=== PATIENT | male | born 1945 ===

== ENCOUNTER 2023-08-01 12:03 | Inpatient (IN) | payer MEDICARE, OTHER, SELFPAY ==
[2023-08-01] VITALS (26 sets, daily range): BP systolic 128–144; BP diastolic 47–71; PULSE 63–91; RESP 12–26; TEMP 36.4–36.9; O2SAT 92–100; BMI 20.5
--- NOTE | ~2023-08-01 | XR_ITS ---
XR chest 2V 08/01/2023 13:40 Indication: Shortness of breath and cough Procedure: 2 view chest Comparison: No prior studies for comparison. Findings: Diffuse bilateral airspace disease, compatible with edema versus pneumonia. Emphysema. No s ignificant effusion. No pneumothorax. Heart size normal. No acute osseous abnormality. Impression: 1: Diffuse bilateral airspace disease may represent edema or pneumonia. Reviewed, dictated and finalized at location A. TTING MACHINE OPERATOR Impression: 1: Diffuse bilateral airspace disease may represent edema or pneumonia.
--- NOTE | 2023-08-01 13:33 | ECG_ITS ---
Measurements Intervals [place] Rate: 63 P: 76 [place]: 130 QRS: 29 QRSD: 92 T: 60 QT: 384 QTc: 394 Interpretive Statements SINUS RHYTHM LOW QRS VOLTAGE IN LIMB LEADS BASELINE WANDER- V4-V6 BORDERLINE ECG NO PREVIOUS ECG AVAILABLE FOR COMPARISON Electronically Signed On 08-01-2023 19:18:40 MARINE CONSULTANT by Mitchell To D.O.
[2023-08-01 14:07] LABS: Hematocrit 42.9 % (42.0-52.0); Hemoglobin 13.9 g/dL (14.0-18.0); Mean Corpuscular HGB Conc 32.4 g/dl (32-36); Mean Corpuscular Hemoglobin 30.3 pg (26-34); Mean Corpuscular Volume 93.5 fl (80-100); Mean Platelet Volume 9.2 fl (7.4-10.4); Platelet Count Result 254 k/mm3 (150-375); Red Blood Count 4.59 M/mm3 (4.6-6.20); Red Cell Distribution Width 12.7 % (11.5-14.5); White Blood Count 4.4 K/mm3 (4.5-10.0)
[2023-08-01 14:18] LABS: Alanine Aminotransferase 45 U/L (6-50); Albumin Level 3.4 g/dL (3.5-5.1); Alkaline Phosphatase 77 U/L (38-126); Anion Gap 6 mmol/L (8-16); Aspartate Amino Transferase 33 U/L (17-59); Bilirubin,Total 0.5 mg/dL (0.2-1.3); Blood Urea Nitrogen 24 mg/dL (9-20); Calcium 9.6 mg/dL (8.4-10.2); Carbon Dioxide 25 mmol/L (22-30); Chloride 105 mmol/L (98-107); Estimated CRCL calculation 52 ml/min; Estimated Glomerular Filt Rate > 60; Glucose 115 mg/dL (65-110); Potassium 3.9 mmol/L (3.4-5.0); Sodium 136 mmol/L (137-145)
[2023-08-01 14:23] LABS: Band Neutrophils Percent 2 % (0-6); Eosinophils Absolute Manual 0.04 K/mm3 (0.02-0.5); Eosinophils Percent Manual 1 % (0-4); Lymphocytes Absolute Manual 1.27 K/mm3 (1.1-4.5); Metamyelocytes Percent 1 %; Monocytes Absolute Manual 0.22 K/mm3 (0.1-0.90); Monocytes Percent Manual 5 % (3-9); Myelocytes Percent 4 %; Neutrophils Absolute Manual 2.64 K/mm3 (1.3-6.7); Neutrophils Percent Manual 58 % (46-73); Platelet Estimate Adequate (Adequate); Total Cells Counted 100
[2023-08-01 14:24] LABS: Atypical Lymphocytes Present; Hypochromasia 2+ (NORMAL); Schistocytes Rare (NORMAL)
--- NOTE | 2023-08-01 14:28 | ED.SOB ---
HPI - SOB/Dyspnea General Chief Complaint: Shortness of Breath/Dyspnea Stated Complaint: sob/ uri Time Seen by Provider: 08/01/23 13:25 History of Present Illness HPI Narrative: Patient is a 78-year-old male with history of COPD presenting with shortness of breath. Patient's family is at bedside and helps with the history. States that they both came down with a viral URI about a month ago. Since that time he has had shortness of breath, cough, malaise. States that he called the [place] last weekend to treated him with a course of antibiotics and steroids which helped a little bit but unfortunately he continues to be very short of breath. Complains of some intermittent chest pain especially with coughing. No fevers, abdominal pain, nausea vomiting, leg swelling. Related Data Home Medications Medication Instructions Recorded Confirmed cetirizine 5 mg tablet 5 mg PO DAILY 08/01/23 08/01/23 cholecalciferol (vitamin D3) 50 50 mcg PO DAILY 08/01/23 08/01/23 mcg (2,000 unit) tablet nifedipine 90 mg tablet,extended 90 mg PO DAILY 08/01/23 08/01/23 release 24 hr tamsulosin 0.4 mg capsule 0.4 mg PO DAILY 08/01/23 08/01/23 thiamine HCl (vitamin B1) 100 mg 100 mg PO DAILY 08/01/23 08/01/23 tablet tiotropium 2.5 mcg-olodaterol 2.5 2 puff inhalation DAILY 08/01/23 08/01/23 mcg/actuation mist for inhalation Allergies Allergy/AdvReac Type Severity Reaction Status Date / Time diazepam [From Valium] Allergy Unknown Verified 08/01/23 14:40 oxycodone Allergy Unknown Verified 08/01/23 14:40 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 HTN (hypertension) Ischemic heart disease Melanoma Tinnitus Surgical History Surgical History History of cholecystectomy Family History Family History Father Alcohol abuse Sibling Renal failure Father Heart failure Mother Uterine cancer Sibling Dementia Social History Social History Smoking packs per day: 1.5 Smoking cigarettes per day: 30.0 Years smoked: 53 Smoking pack-years: 79.50 Smoking status: Former smoker Tobacco type: cigarettes Alcohol intake: never Substance use: never Do You Feel Safe in your Home?: Yes Lack of Transportation: No Lack of Food: Never True Current Housing: I Have Housing Concerned About Future Housing: No Difficulty Paying Gas/Electric Bills: No Difficulty Paying for Meds: No Currently Unemployed: No Education: High School Diploma/GED Difficulty w/ Childcare or Family Care: No Sexual Orientation (if Verbalized by the Patient): Straight or Heterosexual Spiritual care concerns: No Exam Narrative: GENERAL: ill-appearing, in no acute distress HEAD: Normocephalic, atraumatic. EYES: PERRLA and EOMI. ENT: Mucous membranes moist. NECK: Supple. CHEST: very diminished bilaterally, coughing intermit HEART: Regular rate and rhythm ABDOMEN: Soft, nontender, nondistended EXTREMITIES: Normal range of motion. No edema. SKIN: Warm, dry, no rash. NEURO: No focal deficits. Alert and oriented x3. PSYCH: Normal mood and affect. Course Vital Signs Vital signs: Vital Signs Temperature 98.5 F 08/01/23 12:05 Pulse Rate 77 08/01/23 12:05 Respiratory Rate 26 H 08/01/23 12:05 Blood Pressure 144/47 H 08/01/23 12:05 Pulse Oximetry 97 08/01/23 12:05 Temperature 97.6 F 08/04/23 06:28 Pulse Rate 74 08/04/23 08:23 Respiratory Rate 18 08/04/23 07:56 Blood Pressure 136/56 L 08/04/23 08:23 Pulse Oximetry 91 08/04/23 07:44
[2023-08-01] MEDS: IPRATROPIUM BR 0.02% INH SOLN 0.5 MG/2.5 ML VIAL INHALATION ×2 (14:33→20:12)
[2023-08-01] MEDS: ALBUTEROL SULFATE NEB 2.5 MG/3 ML INH 10 MG INHALATION (14:33)
[2023-08-01] MEDS: Please add drug allergy info to patient profile. 1 EACH XX (14:49)
[2023-08-01 14:50] LABS: Lipase 79 U/L (23-300)
[2023-08-01] MEDS: methylPREDNISolone SOD SUCC 125 MG VIAL IV PUSH (14:57)
[2023-08-01] MEDS: SODIUM CHLORIDE 0.9% IV 1,000 ML 999 ML IV CONT (14:57)
[2023-08-01 14:58] LABS: Partial Thromboplastin Time 26.7 SECONDS (22.3-36.8)
[2023-08-01] MEDS: cefTRIAXone 2 GM/NS 100 ML 2 GM/100 ML BAG IVPB (14:58)
[2023-08-01 15:03] LABS: NT Pro B Type Natriuretic Pept 1080 pg/mL (19.9-100); Troponin I 0.013 ng/mL (0.000-0.034)
--- NOTE | 2023-08-01 15:26 | PM.IMHP ---
H&P: HPI History of Present Illness Date/Time: 08/01/23 15:26 Chief Complaint: Dyspnea, Hx COPD Narrative: This is a 78-year-old male patient with a history of hypertension ischemic heart disease COPD melanoma with excision as well as vascular surgery his aorta and iliac arteries who was admitted to the hospital for COPD exacerbation. Patient reports that about a month ago his entire family came down with a viral illness but since that time he has not been able to stop coughing and has been getting significantly more short of breath over the last couple of days. On arrival patient was notably in distress which improved after nebulizer treatment and steroids. Chest x-ray show signs of diffuse bilateral pneumonia versus edema. No history of CHF no other signs of fluid overload so patient presumably has pneumonia. White blood cell count also slightly depressed at 4.4. Patient reports that he is a former smoker quit about 2-3 years ago. 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 HTN (hypertension) Ischemic heart disease Melanoma Tinnitus Surgical History Surgical History History of cholecystectomy Family History Family History Father Alcohol abuse Sibling Renal failure Father Heart failure Mother Uterine cancer Sibling Dementia Social History Social History Smoking packs per day: 1.5 Smoking cigarettes per day: 30.0 Years smoked: 53 Smoking pack-years: 79.50 Smoking status: Former smoker Tobacco type: cigarettes Alcohol intake: never Substance use: never Do You Feel Safe in your Home?: Yes Lack of Transportation: No Lack of Food: Never True Current Housing: I Have Housing Concerned About Future Housing: No Difficulty Paying Gas/Electric Bills: No Difficulty Paying for Meds: No Currently Unemployed: No Education: High School Diploma/GED Difficulty w/ Childcare or Family Care: No Sexual Orientation (if Verbalized by the Patient): Straight or Heterosexual Spiritual care concerns: No Meds Home Medications and Allergies Allergies Allergy/AdvReac Type Severity Reaction Status Date / Time diazepam [From Valium] Allergy Unknown Verified 08/01/23 14:40 oxycodone Allergy Unknown Verified 08/01/23 14:40 Vital Signs Vital Signs - 24 hr 08/01/23 12:05 08/01/23 13:32 08/01/23 13:33 Temperature 36.9 C Pulse Rate 77 73 72 Respiratory Rate 26 H 17 15 Blood Pressure 144/47 H 128/71 Pulse Oximetry 97 95 95 Oxygen Delivery 08/01/23 13:45 08/01/23 14:33 08/01/23 13:30 Temperature Pulse Rate 73 Respiratory Rate 21 H Blood Pressure Pulse Oximetry 95 92 Oxygen Delivery Room Air 08/01/23 14:00 08/01/23 14:15 08/01/23 14:30 Temperature Pulse Rate 66 66 67 Respiratory Rate 24 H 17 16 Blood Pressure Pulse Oximetry 95 97 Oxygen Delivery 08/01/23 14:31 Temperature Pulse Rate 65 Respiratory Rate 21 H Blood Pressure 141/66 H Pulse Oximetry 95 Oxygen Delivery Exam Narrative: GENERAL: mild respiratory distress, improved from presentation to ER HEAD: Normocephalic, atraumatic. EYES: PERRLA and EOMI. ENT: Mucous membranes moist. NECK: Supple. No JVD CHEST: very diminished bilaterally, coughing intermit, mild tachypnea, mild labored breathing HEART: Regular rate and rhythm ABDOMEN: Soft, nontender, nondistended EXTREMITIES: Normal range of motion. No edema. SKIN: Warm, dry, no rash. NEURO: No focal deficits. Alert and oriented x3. PSYCH: Normal mood an
[2023-08-01 15:30] LABS: Influenza A QL RT-PCR Negative (Negative); Influenza B QL RT-PCR Negative (Negative); RSV RNA, RT-PCR Negative (Negative); SARS-CoV-2 RNA PCR Negative (Negative)
[2023-08-01] MEDS: DOXYCYCLINE 100 MG/NS 100 ML 100 MG/100 ML BAG IVPB (15:30)
--- NOTE | 2023-08-01 16:24 | ADMGEN ---
This patient, Ryland Amin, was admitted to 2 Medical Room 240-01. Patient/family oriented to hospital policies and general routines including ID bracelet, bed and alarms, visiting hours, pain management, procedures, bathroom and other care routines, personal items, smoking policy, room service/diet, and visiting hours. Information on how to activate the Rapid Response Team has been discussed. Patient/Family are encouraged to report perceived risks to care and to ask questions if they do not understand what they are told or what they should do. Report received from Yola HUA in ED
[2023-08-01 18:49] LABS: Troponin I < 0.012 ng/mL (0.000-0.034)
[2023-08-01] MEDS: ALBUTEROL SULFATE NEB 2.5 MG/3 ML INH INHALATION (20:12)
[2023-08-01 20:28] LABS: Troponin I < 0.012 ng/mL (0.000-0.034)
[2023-08-01 21:22] LABS: MRSA (PCR) NOT DETECTED (NOT DETECTE)
[2023-08-01] MEDS: methylPREDNISolone SOD SUCC 40 MG VIAL IV PUSH (21:57)
[2023-08-01] MEDS: DOXYCYCLINE HYCLATE 100 MG TABLET PO (21:57)
[2023-08-02] VITALS (11 sets, daily range): BP systolic 128–134; BP diastolic 51–62; PULSE 55–81; RESP 18–20; TEMP 36.4–36.8; O2SAT 91–92; BMI 20.5
--- NOTE | 2023-08-02 | ECHO_ITS ---
Patient Info Name: Ryland Amin Age: 78 years : 1945 Gender: Male Ht: 68 in Wt: 135 lbs BSA: 1.71 m2 HR: 79 bpm BP: 141 / 65 mmHg Heart Rhythm: Sinus Rhythm Technical Quality: Fair Exam Date: 08/02/2023 10:21 AM Exam Location: Echo Lab Patient Status: Inpatient Admit Date: 08/02/2023 Staff Ordering Physician: Aron Sebastian APRN Attending Provider: Mariza Solares Referring Physician: Romulo RODRIGUEZ; Exam Type: CA echo doppler color flow Study Info Indications R06.00 - Dyspnea, unspecified Complete two-dimensional, color flow and Doppler transthoracic echocardiogram is performed. Summary 1. Complete two-dimensional, color flow and Doppler transthoracic echocardiogram is performed. 2. Left ventricular chamber dimension is normal. 3. Left ventricular systolic function is normal, estimated at 65-70%. 4. There is mildly increased left ventricular wall thickness. 5. The left ventricular diastolic function is grade I diastolic dysfunction. 6. There is trace tricuspid valve regurgitation. 7. Unable to estimate PA systolic pressure due to poor spectral resolution of tricuspid regurgitant jet velocity. 8. The prox ascending aorta size is normal. Ascending aorta not well visualized. Consider CT chest if clinically indicated for further evaluation. Left Ventricle Left ventricular chamber dimension is normal. Left ventricular systolic function is normal, estimated at 65-70%. There is mildly increased left ventricular wall thickness. The left ventricular diastolic function is grade I diastolic dysfunction. Right Ventricle Right ventricular chamber dimension is normal. Right ventricular systolic function is normal. Left Atria Left atrial chamber dimension is normal. Right Atria Right atrial chamber dimension is normal. Aortic Valve The aortic valve is not well visualized. There is no aortic valve stenosis. There is no aortic valve regurgitation. Pulmonic Valve The pulmonic valve is not well visualized. Mitral Valve The mitral valve has thickened leaflets. There is trace mitral valve regurgitation. The mitral valve annulus is mildly calcified. Tricuspid Valve The tricuspid valve leaflets are normal. There is trace tricuspid valve regurgitation. Unable to estimate PA systolic pressure due to poor spectral resolution of tricuspid regurgitant jet velocity. Pericardium/Pleural The pericardium appears normal. There is no pericardial effusion. Inferior Vena Cava Normal inferior vena cava with >50% collapse upon inspiration consistent with Empty right atrial pressure, 5 mmHg. Aorta The aortic root size at the sinus of Valsalva is normal. The prox ascending aorta size is normal. Ascending aorta not well visualized. Consider CT chest if clinically indicated for further evaluation. There is mild aortic atherosclerosis. Left Ventricular Outflow Tract Name Value Normal LVOT 2D LVOT Diameter 2.0 cm LVOT Doppler LVOT Peak Gradient 4 mmHg LVOT Mean Gradient 1 mmHg LVOT VTI 16 cm LVOT VTI/AV VTI Ratio 0.5 LVOT Stroke Volume 53 ml
[2023-08-02] MEDS: ALBUTEROL SULFATE NEB 2.5 MG/3 ML INH INHALATION ×4 (02:00→19:29)
[2023-08-02] MEDS: IPRATROPIUM BR 0.02% INH SOLN 0.5 MG/2.5 ML VIAL INHALATION ×4 (02:00→19:29)
[2023-08-02] MEDS: methylPREDNISolone SOD SUCC 40 MG VIAL IV PUSH ×3 (05:18→20:55)
[2023-08-02 06:14] LABS: Basophils Percent Auto 0.7 % (0.2-1.2); Hematocrit 44.2 % (42.0-52.0); Hemoglobin 14.5 g/dL (14.0-18.0); Immature Granulocyte Absolute 0.15 K/mm3 (0.00-0.031); Immature Granulocyte Percent A 2.6 % (0-0.5); Lymphocytes Absolute Auto 0.75 K/mm3 (0.9-3.2); Lymphocytes Percent Auto 13.1 % (18.3-44.2); Mean Corpuscular HGB Conc 32.8 g/dl (32-36); Mean Corpuscular Hemoglobin 30.3 pg (26-34); Mean Corpuscular Volume 92.5 fl (80-100); Mean Platelet Volume 9.1 fl (7.4-10.4); Monocytes Absolute Auto 0.3 K/mm3 (0.1-0.6); Monocytes Percent Auto 4.9 % (2.6-8.5); Neutrophils Absolute Auto 4.5 K/mm3 (1.3-6.7); Neutrophils Percent Auto 78.7 % (45.5-73.1); Platelet Count Result 299 k/mm3 (150-375); Red Blood Count 4.78 M/mm3 (4.6-6.20); Red Cell Distribution Width 12.5 % (11.5-14.5); White Blood Count 5.7 K/mm3 (4.5-10.0)
[2023-08-02 06:25] LABS: Alanine Aminotransferase 40 U/L (6-50); Albumin Level 3.8 g/dL (3.5-5.1); Alkaline Phosphatase 80 U/L (38-126); Anion Gap 8 mmol/L (8-16); Aspartate Amino Transferase 30 U/L (17-59); Bilirubin,Total 0.6 mg/dL (0.2-1.3); Blood Urea Nitrogen 23 mg/dL (9-20); Calcium 9.8 mg/dL (8.4-10.2); Carbon Dioxide 24 mmol/L (22-30); Chloride 102 mmol/L (98-107); Estimated CRCL calculation 48 ml/min; Estimated Glomerular Filt Rate > 60; Glucose 138 mg/dL (65-110); Magnesium 2.3 mg/dL (1.6-2.3); Potassium 4.4 mmol/L (3.4-5.0); Sodium 134 mmol/L (137-145)
[2023-08-02] MEDS: THIAMINE HCL 100 MG TABLET PO (08:40)
[2023-08-02] MEDS: TAMSULOSIN HCL 0.4 MG CAPSULE PO (08:41)
[2023-08-02] MEDS: LORATADINE 10 MG TABLET 5 MG PO (08:41)
[2023-08-02] MEDS: DOXYCYCLINE HYCLATE 100 MG TABLET PO ×2 (08:41→20:55)
[2023-08-02] MEDS: CHOLECALCIFEROL 1,000 UNITS TABLET 2000 UNITS PO (08:43)
[2023-08-02] MEDS: NIFEdipine 30 MG TAB.ER.24 90 MG PO (08:43)
[2023-08-02] MEDS: ENOXAPARIN 40 MG/0.4 ML SYRINGE SUB-Q (08:43)
[2023-08-02] MEDS: UMECLIDINIUM/VILANTEROL 62.5-25 MCG ELLIPTA 1 PUFF INHALATION (09:04)
--- NOTE | 2023-08-02 10:13 | PM.IMPN ---
Progress Note: A&P Assessment and Plan (1) Bilateral pneumonia: Code(s): J18.9 - Pneumonia, unspecified organism Status: Acute Assessment and Plan: Continue Abx of Rocephin and Doxycycline Continue supportive care Blood cultures pending Sputum culture pending Legionella and Strep Pneumo pending Monitor labs and trend vitals Supplemental oxygen as needed. Change substitution of tiotropium-olodaterol to Fluticasone/Salmeterol inhaler as pt states he cannot handle powdered inhalers. Continue IV Solumedrol as I suspect there is a COPD component. Check ECHO today as pt's imaging showed possible pulmonary edema and in the setting of Ischemic heart disease, EF needs to be known. Low suspicion of this as pt appears euvolemic. (2) COPD with acute exacerbation: Code(s): J44.1 - Chronic obstructive pulmonary disease with (acute) exacerbation Status: Acute Assessment and Plan: See plan for #1 (3) HTN (hypertension): Code(s): I10 - Essential (primary) hypertension Status: Chronic Assessment and Plan: Continue to monitor and continue home medications o Procardia XL Adjust regimen in the unfolding clinical scenario as needed. (4) Ischemic heart disease: Code(s): I25.9 - Chronic ischemic heart disease, unspecified Status: Chronic Assessment and Plan: ECHO ordered for today in the setting of elevated BNP and CX with suggestion of possible pulmonary edema. Pt appears euvolemic. Time Spent With Patient Time with patient: 15 - 25 minutes Subjective Date/time seen: 08/02/23 0830 Interval history: This pt was examined at the bedside today in interval assessment. He reports that he is feeling about the same today with no new complaints other than he cannot take the powdered inhaler that is being substituted for his home meds. He was admitted to the hospital for treatment of Bilateral PNA vs. edema, although the pt appeared to be euvolemic at admission and still does. He is receiving abx of Rocephin and Doxycycline and IV steroids as well as nebs. He has no CP, N/V/D and no edema. Review of Systems Review of Systems: All systems reviewed & are unremarkable except as noted in HPI and below Exam Narrative: GENERAL: elderly male pt currently in no respiratory distress HEAD: Normocephalic, atraumatic. EYES: PERRLA and EOMI. ENT: Mucous membranes moist. NECK: Supple. No JVD CHEST: Decreased breath sounds throughout all ramirez posteriorly. HEART: Regular rate and rhythm ABDOMEN: Soft, nontender, nondistended EXTREMITIES: Normal range of motion. No edema. SKIN: Warm, dry, no rash. NEURO: No focal deficits. Alert and oriented x3. PSYCH: Normal mood and affect. Objective Data Vital Signs Vital Signs: Vital Signs - 24 hr 08/01/23 12:05 08/01/23 13:32 08/01/23 13:33 Temperature 98.5 F Pulse Rate 77 73 72 Respiratory Rate 26 H 17 15 Blood Pressure 144/47 H 128/71 Pulse Oximetry 97 95 95 Oxygen Delivery 08/01/23 13:45 08/01/23 14:33 08/01/23 13:30 Temperature Pulse Rate 73 Respiratory Rate 21 H Blood Pressure Pulse Oximetry 95 92 Oxygen Delivery Room Air 08/01/23 14:00 08/01/23 14:15 08/01/23 14:30 Temperature Pulse Rate 66 66 67 Respiratory Rate 24 H 17 16 Blood Pressure Pulse Oximetry 95 97 Oxygen Delivery 08/01/23 14:31 08/01/23 15:37 08/01/23 14:32 Temperature Pulse Rate 65 74 67 Respiratory Rate 21 H 22 H Blood Pressure 141/66 H Pulse Oximetry 95 95 Oxygen Delivery 08/01/23 14:45 08/01/23 15:00 08/01/23 15:01 Temperature Pulse Rate 63 66 64 Respiratory Rate 17 20 12 Blood Pressure 132/64 Pulse Oximetry 100 100 100 Oxygen Delivery 08/01/23 15:15 08/01/23 15:30 08/01/23 15:31 Temperature Pulse Rate 66 75 Respiratory Rate 12 16 Blood Pressure 129/57 L Pulse Oximetry 100 98 100 Oxygen Delivery 08/01/23 15:45 08/01/23 15:57 08/01/23 15:
[2023-08-02] MEDS: cefTRIAXone 2 GM/NS 100 ML 2 GM/100 ML BAG IVPB (14:46)
[2023-08-02] MEDS: FLUTICASONE/SALMETEROL 115-21 MCG INHALER 1 PUFF 2 PUFF INHALATION (19:30)
[2023-08-03] VITALS (11 sets, daily range): BP systolic 107–138; BP diastolic 58–79; PULSE 70–93; RESP 12–20; TEMP 36.3–36.6; O2SAT 90–93
--- NOTE | 2023-08-03 02:39 | PCRCNOTE ---
Did not wake pt due to him having ptsd from war.
[2023-08-03] MEDS: methylPREDNISolone SOD SUCC 40 MG VIAL IV PUSH ×3 (05:40→22:32)
[2023-08-03 06:06] LABS: Basophils Percent Auto 0.2 % (0.2-1.2); Hematocrit 44.3 % (42.0-52.0); Hemoglobin 14.3 g/dL (14.0-18.0); Immature Granulocyte Absolute 0.26 K/mm3 (0.00-0.031); Immature Granulocyte Percent A 1.8 % (0-0.5); Mean Corpuscular HGB Conc 32.3 g/dl (32-36); Mean Corpuscular Hemoglobin 30.2 pg (26-34); Mean Corpuscular Volume 93.7 fl (80-100); Mean Platelet Volume 9.2 fl (7.4-10.4); Monocytes Absolute Auto 0.9 K/mm3 (0.1-0.6); Monocytes Percent Auto 6.1 % (2.6-8.5); Neutrophils Absolute Auto 12.1 K/mm3 (1.3-6.7); Neutrophils Percent Auto 84.9 % (45.5-73.1); Platelet Count Result 291 k/mm3 (150-375); Red Blood Count 4.73 M/mm3 (4.6-6.20); Red Cell Distribution Width 12.6 % (11.5-14.5); White Blood Count 14.3 K/mm3 (4.5-10.0)
[2023-08-03 06:17] LABS: Alanine Aminotransferase 31 U/L (6-50); Albumin Level 3.4 g/dL (3.5-5.1); Alkaline Phosphatase 82 U/L (38-126); Anion Gap 5 mmol/L (8-16); Aspartate Amino Transferase 23 U/L (17-59); Bilirubin,Total 0.4 mg/dL (0.2-1.3); Blood Urea Nitrogen 30 mg/dL (9-20); Carbon Dioxide 26 mmol/L (22-30); Chloride 102 mmol/L (98-107); Estimated CRCL calculation 38 ml/min; Estimated Glomerular Filt Rate 54; Glucose 138 mg/dL (65-110); Magnesium 2.6 mg/dL (1.6-2.3); Potassium 4.4 mmol/L (3.4-5.0); Sodium 133 mmol/L (137-145)
[2023-08-03] MEDS: ALBUTEROL SULFATE NEB 2.5 MG/3 ML INH INHALATION ×3 (09:24→20:56)
[2023-08-03] MEDS: IPRATROPIUM BR 0.02% INH SOLN 0.5 MG/2.5 ML VIAL INHALATION ×3 (09:24→20:56)
[2023-08-03] MEDS: FLUTICASONE/SALMETEROL 115-21 MCG INHALER 1 PUFF 2 PUFF INHALATION ×2 (09:32→20:59)
[2023-08-03] MEDS: NIFEdipine 30 MG TAB.ER.24 90 MG PO (09:48)
[2023-08-03] MEDS: TAMSULOSIN HCL 0.4 MG CAPSULE PO (09:51)
[2023-08-03] MEDS: DOXYCYCLINE HYCLATE 100 MG TABLET PO ×2 (09:51→20:34)
[2023-08-03] MEDS: THIAMINE HCL 100 MG TABLET PO (09:52)
[2023-08-03] MEDS: CHOLECALCIFEROL 1,000 UNITS TABLET 2000 UNITS PO (09:53)
[2023-08-03] MEDS: LORATADINE 10 MG TABLET 5 MG PO (09:54)
[2023-08-03] MEDS: ENOXAPARIN 40 MG/0.4 ML SYRINGE SUB-Q (09:56)
--- NOTE | 2023-08-03 13:27 | PM.IMPN ---
Progress Note: A&P Assessment and Plan (1) Bilateral pneumonia: Code(s): J18.9 - Pneumonia, unspecified organism Status: Acute Assessment and Plan: Continue Abx of Rocephin and Doxycycline Continue supportive care Blood cultures pending Sputum culture negative Legionella and Strep Pneumo pending Monitor labs and trend vitals Supplemental oxygen as needed. con't Fluticasone/Salmeterol inhaler as pt states he cannot handle powdered inhalers. Continue IV Solumedrol as COPD component suspected. ECHO EF WNL. (2) COPD with acute exacerbation: Code(s): J44.1 - Chronic obstructive pulmonary disease with (acute) exacerbation Status: Acute Assessment and Plan: See above (3) HTN (hypertension): Code(s): I10 - Essential (primary) hypertension Status: Chronic Assessment and Plan: Continue to monitor and continue home Procardia XL (4) Ischemic heart disease: Code(s): I25.9 - Chronic ischemic heart disease, unspecified Status: Chronic Assessment and Plan: ECHO unrevealing Pt appears euvolemic. Subjective Date/time seen: 08/03/23 13:27 Interval history: Patient is in no acute distress. Denies worsening SOB, chest pain. Continues to report dry cough. Currently on room air. Sputum culture negative, BC still pending. Will continue AB therapy and IV steroids for treatment of suspected PNA. Plan to d/c tomorrow if remains stable. Review of Systems Review of Systems: All systems reviewed & are unremarkable except as noted in HPI and below Exam Narrative: GENERAL: well-nourished, elderly male in no respiratory distress HEAD: Normocephalic, atraumatic. EYES: PERRLA and EOMI. ENT: Mucous membranes moist. NECK: Supple. No JVD CHEST: Lung sounds present, but decreased. HEART: RRR ABDOMEN: Soft, nontender, nondistended. BS present. EXTREMITIES: Normal range of motion. No edema. SKIN: Warm, dry, no rash. NEURO: No focal deficits. Alert and oriented x3. PSYCH: Normal mood and affect. Objective Data Vital Signs Vital Signs: Vital Signs - 24 hr 08/02/23 13:59 08/02/23 14:20 08/02/23 14:00 Temperature 98.2 F Pulse Rate 75 71 76 Respiratory Rate 20 18 18 Blood Pressure 134/62 Pulse Oximetry 91 Oxygen Delivery 08/02/23 19:30 08/02/23 19:30 08/02/23 19:40 Temperature Pulse Rate 76 73 Respiratory Rate 18 18 Blood Pressure Pulse Oximetry 91 Oxygen Delivery Room Air 08/02/23 20:45 08/02/23 20:00 08/03/23 04:46 Temperature 97.6 F 97.6 F Pulse Rate 81 72 Respiratory Rate 18 18 Blood Pressure 128/51 L 134/58 L Pulse Oximetry 92 90 Oxygen Delivery Room Air 08/03/23 07:37 08/03/23 09:24 08/03/23 09:24 Temperature 97.4 F L Pulse Rate 70 76 Respiratory Rate 12 20 Blood Pressure 131/79 Pulse Oximetry 90 92 Oxygen Delivery Room Air 08/03/23 09:36 08/03/23 09:50 08/03/23 12:21 Temperature 97.7 F Pulse Rate 78 77 Respiratory Rate 20 14 Blood Pressure 138/58 L Pulse Oximetry 92 Oxygen Delivery Room Air Intake/Output Intake/Output: Intake & Output 07/31/23 08/01/23 08/02/23 08/03/23 23:59 23:59 23:59 23:59 Intake Total 1640 1480 1238 Output Total 200 Balance 1440 1480 1238 Meds/Results Medications: Active Medications Generic Name Dose Route Start Last Admin Trade Name Cecile PRN Reason Stop Dose Admin Albuterol 2.5 mg 08/01/23 20:00 08/03/23 09:24 Albuterol Sulfate Neb 2.5 Mg/3 Ml Inh INHALATION 2.5 mg Q6HRT ROGERIO Administration Doxycycline Hyclate 100 mg 08/01/23 21:00 08/03/23 09:51 Doxycycline Hyclate 100 Mg Tablet PO 100 mg Q12HR ROGERIO Administration Enoxaparin Sodium 40 mg 08/02/23 09:00 08/03/23 09:56 Enoxaparin 40 Mg/0.4 Ml Syringe SUB-Q 40 mg DAILY ROGERIO Administration Ceftriaxone Sodium 2 gm in 100 mls @ 200 mls/hr 08/02/23 15:00 08/02/23 16:31 Rocephin 2 Gm/Ns 100 Ml IVPB Infused Q24H
[2023-08-03] MEDS: cefTRIAXone 2 GM/NS 100 ML 2 GM/100 ML BAG IVPB (14:40)
[2023-08-04] VITALS (7 sets, daily range): BP systolic 136–137; BP diastolic 56–66; PULSE 74–94; RESP 16–20; TEMP 36.4; O2SAT 91–95
[2023-08-04] MEDS: IPRATROPIUM BR 0.02% INH SOLN 0.5 MG/2.5 ML VIAL INHALATION ×2 (02:22→07:42)
[2023-08-04] MEDS: ALBUTEROL SULFATE NEB 2.5 MG/3 ML INH INHALATION ×2 (02:22→07:42)
[2023-08-04 06:16] LABS: Basophils Percent Auto 0.3 % (0.2-1.2); Hematocrit 42.1 % (42.0-52.0); Hemoglobin 13.5 g/dL (14.0-18.0); Immature Granulocyte Percent A 3.4 % (0-0.5); Lymphocytes Percent Auto 7.7 % (18.3-44.2); Mean Corpuscular HGB Conc 32.1 g/dl (32-36); Mean Corpuscular Hemoglobin 30.1 pg (26-34); Mean Platelet Volume 9.4 fl (7.4-10.4); Monocytes Absolute Auto 0.7 K/mm3 (0.1-0.6); Monocytes Percent Auto 5.9 % (2.6-8.5); Neutrophils Absolute Auto 9.7 K/mm3 (1.3-6.7); Neutrophils Percent Auto 82.7 % (45.5-73.1); Platelet Count Result 293 k/mm3 (150-375); Red Blood Count 4.48 M/mm3 (4.6-6.20); Red Cell Distribution Width 12.8 % (11.5-14.5); White Blood Count 11.7 K/mm3 (4.5-10.0)
[2023-08-04 06:27] LABS: Alanine Aminotransferase 30 U/L (6-50); Albumin Level 3.2 g/dL (3.5-5.1); Alkaline Phosphatase 75 U/L (38-126); Anion Gap 7 mmol/L (8-16); Aspartate Amino Transferase 25 U/L (17-59); Bilirubin,Total 0.3 mg/dL (0.2-1.3); Blood Urea Nitrogen 32 mg/dL (9-20); Calcium 9.5 mg/dL (8.4-10.2); Carbon Dioxide 25 mmol/L (22-30); Chloride 103 mmol/L (98-107); Estimated CRCL calculation 38 ml/min; Estimated Glomerular Filt Rate 54; Glucose 137 mg/dL (65-110); Magnesium 2.5 mg/dL (1.6-2.3); Potassium 4.7 mmol/L (3.4-5.0); Sodium 135 mmol/L (137-145)
[2023-08-04] MEDS: methylPREDNISolone SOD SUCC 40 MG VIAL IV PUSH (07:23)
[2023-08-04] MEDS: FLUTICASONE/SALMETEROL 115-21 MCG INHALER 1 PUFF 2 PUFF INHALATION (07:42)
[2023-08-04] MEDS: NIFEdipine 30 MG TAB.ER.24 90 MG PO (08:25)
[2023-08-04] MEDS: LORATADINE 10 MG TABLET 5 MG PO (08:28)
[2023-08-04] MEDS: TAMSULOSIN HCL 0.4 MG CAPSULE PO (08:28)
[2023-08-04] MEDS: DOXYCYCLINE HYCLATE 100 MG TABLET PO (08:29)
[2023-08-04] MEDS: CHOLECALCIFEROL 1,000 UNITS TABLET 2000 UNITS PO (08:29)
[2023-08-04] MEDS: ENOXAPARIN 40 MG/0.4 ML SYRINGE SUB-Q (08:29)
[2023-08-04] MEDS: THIAMINE HCL 100 MG TABLET PO (08:29)
--- NOTE | 2023-08-04 11:00 | PM.DS ---
DS: Admitting Diagnosis Discharge Date 08/04/23 Admitting Diagnosis dyspnea DS: Discharge Diagnosis Discharge Diagnosis (1) Bilateral pneumonia: Code(s): J18.9 - Pneumonia, unspecified organism Status: Acute Assessment and Plan: will d/c on PO Augmentin and Doxycycline Blood cultures pending Sputum culture prelim negative Legionella and Strep Pneumo pending ECHO EF WNL. (2) COPD with acute exacerbation: Code(s): J44.1 - Chronic obstructive pulmonary disease with (acute) exacerbation Status: Acute Assessment and Plan: See above (3) HTN (hypertension): Code(s): I10 - Essential (primary) hypertension Status: Chronic Assessment and Plan: continue home Procardia XL (4) Ischemic heart disease: Code(s): I25.9 - Chronic ischemic heart disease, unspecified Status: Chronic Assessment and Plan: ECHO unrevealing Pt appears euvolemic. DS: Summary Hospital Course Hospital Course: Patient is a 78 YO male with PMH of hypertension, ischemic heart disease, COPD, melanoma with excision as well as vascular surgery admitted for COPD exacerbation. Chest x-ray showed signs of diffuse bilateral pneumonia versus edema. No history of CHF, no other signs of fluid overload so patient presumably has pneumonia. Patient reports that he is a former smoker quit about 2-3 years ago. Patient received IV AB therapy and IV solumedrol while impatient. Patient condition has remained stable and improved. He is not requiring supplemental oxygen. His BC and Sputum cultures have NGTD. He is not SOB or reporting chest pain. He feels he has returned to his baseline. Will continue PO AB at d/c. He is stable to return home today. Status at Discharge Functional status at discharge: independent ambulation Overall status at discharge: patient is back to baseline Time Spent with Patient Time attestation: Total time spent providing and/or coordinating discharge services: Exam Narrative: GENERAL: well-nourished, elderly male in no respiratory distress HEAD: Normocephalic, atraumatic. EYES: PERRLA and EOMI. ENT: Mucous membranes moist. NECK: Supple. No JVD CHEST: Lung sounds present, but decreased. No wheezes or crackles. HEART: RRR ABDOMEN: Soft, nontender, nondistended. BS present. EXTREMITIES: Normal range of motion. No edema. SKIN: Warm, dry, no rash. NEURO: No focal deficits. Alert and oriented x3. PSYCH: Normal mood and affect. DS: Data Data Completed and Pending Labs on day of discharge: Labs from last 24 hours 08/04/23 05:19 WBC 11.7 H RBC 4.48 L Hgb 13.5 L Hct 42.1 MCV 94.0 MCH 30.1 MCHC 32.1 RDW 12.8 Plt Count 293 MPV 9.4 Immature Gran % (Auto) 3.4 H Neut % (Auto) 82.7 H Lymph % (Auto) 7.7 L Mccreary % (Auto) 5.9 Eos % (Auto) 0.0 Baso % (Auto) 0.3 Lymph # (Auto) 0.90 Mccreary # (Auto) 0.7 H Eos # (Auto) 0.0 Baso # (Auto) 0.0 Abs Immat Gran (auto) 0.40 H Absolute Neuts (auto) 9.7 H Absolute Nucleated RBC 0.0 Nucleated RBC % 0.0 Sodium 135 L Potassium 4.7 Chloride 103 Carbon Dioxide 25 Anion Gap 7 L BUN 32 H Creatinine 1.30 Estim Creat Clear Calc 38 Estimated GFR 54 L Glucose 137 H Calcium 9.5 Magnesium 2.5 H Total Bilirubin 0.3 AST 25 ALT 30 Alkaline Phosphatase 75 Total Protein 6.0 L Albumin 3.2 L Preliminary micro results at discharge 08/01/23 19:49 Sputum Culture - Preliminary Sputum 08/01/23 18:05 Blood Culture - Preliminary Blood 08/01/23 18:00 Blood Culture - Preliminary Blood Discharge Plan Discharge Attending physician on discharge: Reilly Miles Consulting providers: Ovidio Moore Discharging Clinician: Sandra Valverde Anticipated Discharge Date/Time: 08/04/23 10:12 Patient Disposition: Home, Self-Care Activity: as tolerated Diet: heart healthy Discharge Instructions: You will still have symptoms of pneumonia after you mahad
[2023-08-04 21:28] LABS: Pneumococcal Antigen Urine Not Detected (Not Detected)
[2023-08-06 01:26] LABS: Legionella pneumophila Ag Ur Not Detected (Not Detected)
--- NOTE | 2023-08-09 12:54 | PC.NURSE ---
Sputum and blood cx are negative.
== END 2023-08-04 12:25 | disposition home or self-care (01) | DRG 194 ==
LOC: ANHED 14:01 → ANH2MED 15:52
PROVIDERS: Nurse Practitioner; Admitting Provider Family Medicine; Emergency Provider Emergency Medicine; Visit Provider Nurse Practitioner
DX: J18.9 Pneumonia, unspecified organism (principal); J44.0 Chronic obstructive pulmonary disease with (acute) lower respiratory infection; J44.1 Chronic obstructive pulmonary disease with (acute) exacerbation; I25.9 Chronic ischemic heart disease, unspecified; I10 Essential (primary) hypertension; Z11.52 Encounter for screening for COVID-19; Z90.49 Acquired absence of other specified parts of digestive tract; Z87.891 Personal history of nicotine dependence
CPT/HCPCS: 36415; 71046; 80053; 83690; 83735; 83880; 84484; 85025; 85610; 85730; 87040; 87070; 87205; 87449; 87637; 87641; 87899; 93005; 93306; 94640; 96361; 96365; 96375; 99285; A9270; C8929; G0378; J0696; J1650; J2920; J2930; J7030

== ENCOUNTER 2024-09-18 15:04 | Outpatient (CLI) | payer SELFPAY ==
--- NOTE | ~2024-09-18 | XR_ITS ---
Cervical Spine: AP, lateral, open-mouth views Clinical History: Pain Findings: The normal lordotic curve is maintained. No fracture or subluxation seen. There is advanced facet arthropathy throughout the cervical spine. There is severe degenerative disc narrowing at C2-C 3, C4-C5, and C5-C6. There is moderate degenerative disc narrowing at C3-C4. No instability evident o n flexion or extension. Pre-vertebral soft tissues are unremarkable. Impression: Advanced degenerative spondylosis, as above. Reviewed, dictated and finalized at location M. Impression: Advanced degenerative spondylosis, as above.
== END 2024-09-18 15:05 | disposition home or self-care (01) ==
PROVIDERS: PCP Chiropractor Rehabilitation; Visit Provider Chiropractor Rehabilitation
DX: M50.31 Other cervical disc degeneration, high cervical region (principal); M50.321 Other cervical disc degeneration at C4-C5 level; M50.322 Other cervical disc degeneration at C5-C6 level
CPT/HCPCS: 72050